=== PATIENT | male | born 1985 | race Caucasian/White ===

== ENCOUNTER 2018-06-29 19:53 | Emergency (ER) | payer SELFPAY ==
[2018-06-29] MEDS ORDERED: Proparacaine 0.5% Opth 15 ML BOT ONE (20:15)
[2018-06-29] MEDS ORDERED: Fluorescein Opthalmic Strip ONE (21:46)
[2018-06-29] MEDS ORDERED: traMADol HCl 50 MG TAB ONE (22:36)
[2018-06-29] MEDS ORDERED: Ciprofloxacin 0.3% Ophth Drops 2.5 ml Bottle L EYE SCH (23:15)
== END 2018-06-29 23:19 | disposition home or self-care (01) ==
LOC: ERS 19:53
DX: S05.02XA Injury of conjunctiva and corneal abrasion without foreign body, left eye, initial encounter (principal); F17.210 Nicotine dependence, cigarettes, uncomplicated; X58.XXXA Exposure to other specified factors, initial encounter
CPT/HCPCS: 99283

== ENCOUNTER 2018-08-04 13:51 | Emergency (ER) | payer SELFPAY | END 2018-08-04 14:41 | disposition home or self-care (01) | LOC: ERS 13:51 | DX: R11.10 Vomiting, unspecified (principal); F17.210 Nicotine dependence, cigarettes, uncomplicated | CPT/HCPCS: 99283 ==

== ENCOUNTER 2020-05-16 18:21 | Emergency (ER) | payer SELFPAY ==
[2020-05-17 02:33] LABS: SARS-CoV-2 PCR by NAA Not Detected (NotDetected)
== END 2020-05-16 19:00 | disposition home or self-care (01) ==
LOC: ERS 18:21
DX: R05 Cough (principal); R51.9 Headache, unspecified; R09.81 Nasal congestion; F17.200 Nicotine dependence, unspecified, uncomplicated; Z20.822 Contact with and (suspected) exposure to COVID-19
CPT/HCPCS: 87635; 99283; U0003; U0005